=== PATIENT | male | born 1945 | race Caucasian/White ===

== ENCOUNTER 2021-10-20 22:19 | Inpatient (IN) | payer BC, MEDICARE ==
[2021-10-21 00:56] VITALS: BMI 37.6
[2021-10-21] MEDS ORDERED: Acetaminophen 325 MG TAB PO PRN (04:47)
[2021-10-21] MEDS ORDERED: Famotidine 20 MG TAB PO SCH (09:00)
[2021-10-21] MEDS ORDERED: Ondansetron ODT 4 MG TAB PO PRN (09:04)
[2021-10-21] MEDS ORDERED: Benzonatate 100 MG CAP PO PRN (09:04)
[2021-10-21] MEDS ORDERED: HumaLOG 300 UNITS/3 ML VIAL SC PRN (09:04)
[2021-10-21] MEDS ORDERED: Acetaminophen 500 MG TAB PO PRN (09:04)
[2021-10-21] MEDS ORDERED: Dextrose 50% Abboject 50 ML SYRINGE SLOW IVP PRN (09:04)
[2021-10-21] MEDS ORDERED: Ibuprofen 200 MG TAB PO PRN (09:04)
[2021-10-21] MEDS ORDERED: Loratadine 10 MG TAB PO SCH (09:04)
[2021-10-21] MEDS ORDERED: Dextrose 5% in Water 1,000 ML IV PRN (09:04)
[2021-10-21] MEDS ORDERED: hydrALAZINE 20 MG/ML VIAL SLOW IVP PRN (09:04)
[2021-10-21] MEDS ORDERED: Ondansetron PF 4 MG/2 ML Vial IVP PRN (09:04)
[2021-10-21] MEDS ORDERED: predniSONE 20 MG TAB PO SCH (09:15)
[2021-10-21] MEDS: Oseltamivir 75 MG CAP PO SCH ×2 (09:40→21:02)
[2021-10-21] MEDS: guaiFENesin ER 600 MG TAB PO SCH ×2 (09:41→21:02)
[2021-10-21] MEDS: Sodium Chloride 0.9% 1,000 ML IV SCH ×2 (09:42→18:42)
[2021-10-21] MEDS ORDERED: Mycophenolate 250 MG CAP PO SCH ×2 (11:45→21:00)
[2021-10-21] MEDS: HumaLOG 300 UNITS/3 ML VIAL SC PRN ×2 (11:45→17:05)
[2021-10-21] MEDS ORDERED: Non-Formulary Item 1 EACH (Icosapent Ethyl 1 GM Capsule) PO SCH (21:00)
[2021-10-21] MEDS ORDERED: Rosuvastatin 10 MG TAB PO SCH (21:00)
[2021-10-21] MEDS ORDERED: MYCOPHENOLATE MOFETIL 500 MG PO SCH (21:00)
[2021-10-21] MEDS: Mycophenolate 250 MG CAP PO SCH (21:01)
[2021-10-21] MEDS: Icosapent Ethyl 1 GM CAPSULE PO SCH (21:02)
[2021-10-21] MEDS: Glimepiride 4 MG TAB PO SCH (21:02)
[2021-10-22] MEDS: Sodium Chloride 0.9% 1,000 ML IV SCH (04:51)
[2021-10-22] MEDS ORDERED: oxyCODONE 5 MG TAB PO PRN (06:45)
[2021-10-22 06:55] LABS: #Lymphocytes 1.5 thou/uL (1.20-3.40); #Monocytes 0.8 thou/uL (0.11-0.59); #Neutrophils 3.1 thou/uL (1.40-6.50); %Basophils 0.2 % (0.0-1.0); %Eosinophils 0.3 % (0.0-10.0); %Lymphocytes 28.1 % (21.0-51.0); %Monocytes 14.1 % (0.0-10.0); %Neutrophils 57.3 % (42.0-75.0); Mean Corpuscular HGB CONC 32.2 g/dL (32.0-36.0); Mean Corpuscular Hemoglobin 30.7 pg (27.0-31.0); Mean Corpuscular Volume 95.2 fL (78.0-98.0); Mean Platelet Volume 6.8 fL (7.4-10.4); Platelet Count 160 thou/uL (130-400); RBC Distribution Width 13.1 % (11.5-14.5); Red Blood Cell (RBC) Count 4.25 mill/uL (4.70-6.10); White Blood Cell (WBC) Count 5.4 thou/uL (4.8-10.8)
[2021-10-22] MEDS: HumaLOG 300 UNITS/3 ML VIAL SC PRN (06:57)
[2021-10-22 07:15] LABS: ALT (SGPT) 15 U/L (8-55); AST (SGOT) 15 U/L (5-34); Albumin 3.6 g/dL (3.4-4.8); Alkaline Phosphatase 33 U/L (40-110); Anion Gap 11 mmol/L (10-20); BUN (Urea Nitrogen) 14 mg/dL (8.4-25.7); Bilirubin, Total 0.4 mg/dL (0.2-1.2); Calc. Creatinine Clearance 104 mL/min (70-130); Calcium 8.6 mg/dL (7.8-10.44); Carbon Dioxide 29 mmol/L (23-31); Chloride 100 mmol/L (98-107); Globulin 2.8 g/dL (2.4-3.5); Glucose 198 mg/dL (83-110); Magnesium 1.9 mg/dL (1.6-2.6); Potassium 3.5 mmol/L (3.5-5.1); Protein, Total 6.4 g/dL (5.8-8.1); Sodium 136 mmol/L (136-145)
[2021-10-22] MEDS ORDERED: predniSONE 20 MG TAB PO SCH (08:00)
[2021-10-22] MEDS: Mycophenolate 250 MG CAP PO SCH (08:23)
[2021-10-22] MEDS: Icosapent Ethyl 1 GM CAPSULE PO SCH (08:24)
[2021-10-22] MEDS: Oseltamivir 75 MG CAP PO SCH (08:24)
[2021-10-22] MEDS: guaiFENesin ER 600 MG TAB PO SCH (08:24)
[2021-10-22] MEDS: Glimepiride 4 MG TAB PO SCH (08:24)
[2021-10-22 08:27] LABS: Hemoglobin A1c 9.4 % (4.0-6.0)
[2021-10-22 08:29] VITALS: BP 142/84; TEMP 98.1
[2021-10-22] MEDS ORDERED: FENOFIBRATE 120 MG PO SCH (09:00)
[2021-10-22] MEDS ORDERED: Ezetimibe 10 MG TAB PO SCH (09:00)
[2021-10-22] MEDS ORDERED: Aspirin 81 mg Enteric Coated Tablet PO SCH (09:00)
[2021-10-22] MEDS ORDERED: Allopurinol 300 MG TAB PO SCH (09:00)
[2021-10-22] MEDS ORDERED: Loratadine 10 MG TAB PO SCH (09:00)
[2021-10-22] MEDS ORDERED: Multivit, Therapeutic 1 TAB PO SCH (09:00)
[2021-10-22] MEDS ORDERED: Alogliptin 25 MG TAB PO SCH (09:00)
[2021-10-22] MEDS ORDERED: Fenofibrate Nanocrystallized 145 MG TAB PO SCH (09:00)
== END 2021-10-22 11:17 | disposition home or self-care (01) | DRG 195 ==
LOC: T4-A 23:45 → OBSVTOIN 10-21 09:04
PROVIDERS: ADMIT Student in an Organized Health Care Education/Training Program; ATTEND Family Medicine
DX: J10.1 Influenza due to other identified influenza virus with other respiratory manifestations (principal); G70.00 Myasthenia gravis without (acute) exacerbation; I25.10 Atherosclerotic heart disease of native coronary artery without angina pectoris; E11.40 Type 2 diabetes mellitus with diabetic neuropathy, unspecified; M19.90 Unspecified osteoarthritis, unspecified site; E78.5 Hyperlipidemia, unspecified; M10.9 Gout, unspecified; E66.01 Morbid (severe) obesity due to excess calories; Z96.651 Presence of right artificial knee joint; I25.2 Old myocardial infarction; Z95.5 Presence of coronary angioplasty implant and graft; Z98.1 Arthrodesis status; Z98.49 Cataract extraction status, unspecified eye; Z88.0 Allergy status to penicillin; Z88.8 Allergy status to other drugs, medicaments and biological substances; Z79.899 Other long term (current) drug therapy; Z79.82 Long term (current) use of aspirin; Z79.84 Long term (current) use of oral hypoglycemic drugs; Z68.37 Body mass index [BMI] 37.0-37.9, adult; Z98.890 Other specified postprocedural states
CPT/HCPCS: 36415; 36416; 80053; 83036; 83735; 84443; 85025; 94640; G0378; J1815; J7050; J7512; J7517; J7620

== ENCOUNTER 2022-10-18 09:35 | Outpatient (CLI) | payer BC ==
[2022-10-18 11:02] LABS: #Basophils 0.1 10x3/uL (0.0-0.2); #Eosinphils 0.1 10x3/uL (0.0-0.5); #Monocytes 0.6 10x3/uL (0.0-1.1); #Neutrophils 4.3 10x3/uL (1.5-8.4); %Basophils 0.7 % (0.0-2.0); %Eosinophils 1.6 % (0.0-6.0); %Lymphocytes 27.8 % (18.0-47.0); %Monocytes 8.2 % (0.0-10.0); %Neutrophils 61.3 % (40.0-75.0); Mean Corpuscular Hemoglobin 28.6 pg (27.0-33.0); Mean Corpuscular Volume 89.6 fl (81.2-95.1); Mean Platelet Volume 9.6 fl (7.4-10.4); Platelet Count 303 10x3/uL (150-450); RBC Distribution Width 15.1 % (11.5-14.5); Red Blood Cell (RBC) Count 4.89 10x6/uL (4.32-5.72)
[2022-10-18 11:08] LABS: INR-International Normal Ratio 0.9; Prothrombin Time 10.3 sec (9.5-12.1)
[2022-10-18 11:14] LABS: Anion Gap 16 mmol/L (10-20); BUN (Urea Nitrogen) 27 mg/dL (8.4-25.7); Calc. Creatinine Clearance 0 mL/min (70-130); Calcium 9.4 mg/dL (7.8-10.44); Carbon Dioxide 23 mmol/L (23-31); Chloride 104 mmol/L (98-107); Estimated GFR 89; Glucose 131 mg/dL (83-110); Potassium 4.2 mmol/L (3.5-5.1); Sodium 139 mmol/L (136-145)
== END 2022-10-18 09:36 | disposition home or self-care (01) ==
LOC: LABBT 09:35
PROVIDERS: ATTEND Orthopaedic Surgery
DX: Z01.818 Encounter for other preprocedural examination (principal); M17.12 Unilateral primary osteoarthritis, left knee
CPT/HCPCS: 80048; 85025; 85610; 87081; 93005; 93010

== ENCOUNTER 2022-10-29 06:33 | Inpatient (IN) | payer BC, OTHER ==
[2022-10-24 15:43] VITALS: BMI 36.2
[2022-10-29] MEDS ORDERED: Tranexamic Acid 1,000 MG/10 ML VIAL ONE (07:00)
[2022-10-29] MEDS ORDERED: Sodium Chloride 0.9% 100 ML ONE ×2 (07:00→09:09)
[2022-10-29] MEDS ORDERED: Vancomycin (BATCH) 1.5 GRAM/300 ML BAG ONE (07:01)
[2022-10-29] MEDS ORDERED: EPINEPHrine 1 MG/ML AMP ONE (08:02)
[2022-10-29] MEDS ORDERED: fentaNYL 50 mcg/mL 1 mL Vial ONE (08:02)
[2022-10-29] MEDS ORDERED: Lidocaine 1% (PF) 30 ML VIAL ONE (08:02)
[2022-10-29] MEDS ORDERED: Bupivacaine PF 0.5% 30 ML VIAL ONE ×2 (08:02→10:14)
[2022-10-29] MEDS ORDERED: Midazolam HCl 2 mg/2 ml Vial ONE ×2 (08:24→09:39)
[2022-10-29] MEDS ORDERED: fentaNYL 50 mcg/mL 1 mL Vial SLOW IVP PRN (08:55)
[2022-10-29] MEDS ORDERED: Zolpidem Tartrate 5 MG TAB PO PRN ×2 (08:56→09:00)
[2022-10-29] MEDS ORDERED: Acetaminophen 325 MG TAB PO PRN (08:56)
[2022-10-29] MEDS ORDERED: HYDROcodone/Acetaminophen 10/325 mg Tablet PO PRN ×3 (08:56→09:00)
[2022-10-29] MEDS ORDERED: Ondansetron PF 4 MG/2 ML Vial IVP PRN ×2 (08:56→09:00)
[2022-10-29] MEDS ORDERED: Promethazine HCl 25 MG/ML VIAL IM PRN ×2 (08:56→09:00)
[2022-10-29] MEDS ORDERED: diphenhydrAMINE 25 MG CAP PO PRN (08:56)
[2022-10-29] MEDS ORDERED: Benzonatate 100 MG CAP PO PRN (08:57)
[2022-10-29] MEDS ORDERED: Multivitamin W/ Minerals 1 TAB PO SCH (09:00)
[2022-10-29] MEDS ORDERED: Aspirin 81 mg Enteric Coated Tablet PO SCH (09:00)
[2022-10-29] MEDS ORDERED: traMADol HCl 50 MG TAB PO PRN (09:00)
[2022-10-29] MEDS ORDERED: Ropivacaine 0.2% 550 ML 550 ML NERVE BLCK SCH (09:00)
[2022-10-29] MEDS ORDERED: CEFAZOLIN 2 GM VIAL ONE (09:09)
[2022-10-29] MEDS ORDERED: Dulaglutide [Trulicity] 1.5 MG/0.5 ML Pen.Injctr IM SCH (09:15)
[2022-10-29] MEDS ORDERED: Dexamethasone 20 MG/5 ML VIAL ONE (09:29)
[2022-10-29] MEDS ORDERED: Ondansetron PF 4 MG/2 ML Vial ONE ×2 (09:29→11:02)
[2022-10-29] MEDS ORDERED: fentaNYL PF 100 MCG/2 ML SYRINGE ONE (09:39)
[2022-10-29] MEDS: Allopurinol 300 MG TAB PO SCH (12:36)
[2022-10-29] MEDS: Aspirin 81 mg Enteric Coated Tablet PO SCH ×2 (12:36→21:45)
[2022-10-29] MEDS: Mycophenolate 250 MG CAP PO SCH ×2 (12:37→21:45)
[2022-10-29] MEDS: Senokot S 8.6-50 MG TAB PO SCH ×2 (12:37→21:46)
[2022-10-29] MEDS: CEFAZOLIN 2 GM in Sodium Chloride 0.9% 100 ML IVPB SCH ×2 (12:37→16:11)
[2022-10-29] MEDS: Ezetimibe 10 MG TAB PO SCH (12:37)
[2022-10-29] MEDS: Ferrous Gluconate 324 MG TAB PO SCH ×2 (12:37→21:45)
[2022-10-29] MEDS: Sodium Chloride 0.9% 1,000 ML IV SCH ×2 (12:38→20:06)
[2022-10-29] MEDS: Ketorolac Tromethamine 30 MG/ML VIAL IVP SCH ×3 (12:54→23:49)
[2022-10-29] MEDS: traMADol HCl 50 MG TAB PO PRN (16:10)
[2022-10-29] MEDS: Icosapent Ethyl 1 GM CAPSULE PO SCH (21:45)
[2022-10-29] MEDS: Rosuvastatin 10 MG TAB PO SCH (21:45)
[2022-10-30] MEDS ORDERED: CEFAZOLIN 2 GM in Sodium Chloride 0.9% 100 ML IVPB SCH (01:00)
[2022-10-30] MEDS: Sodium Chloride 0.9% 1,000 ML IV SCH ×2 (05:31→11:02)
[2022-10-30] MEDS: Ketorolac Tromethamine 30 MG/ML VIAL IVP SCH ×4 (05:32→22:58)
[2022-10-30 06:21] LABS: Mean Corpuscular HGB CONC 32.5 g/dL (32.0-36.0); Mean Corpuscular Hemoglobin 29.2 pg (27.0-31.0); Mean Platelet Volume 7.5 fL (7.4-10.4); Platelet Count 210 10x3/uL (130-400); RBC Distribution Width 14.6 % (11.5-14.5); Red Blood Cell (RBC) Count 4.44 mill/uL (4.70-6.10); White Blood Cell (WBC) Count 9.7 10x3/uL (4.8-10.8)
[2022-10-30] MEDS: Glimepiride 2 MG TAB PO SCH (08:20)
[2022-10-30] MEDS: Empagliflozin 10 MG TAB PO SCH (08:21)
[2022-10-30] MEDS: Loratadine 10 MG TAB PO SCH (08:21)
[2022-10-30] MEDS: Allopurinol 300 MG TAB PO SCH (08:21)
[2022-10-30] MEDS: Aspirin 81 mg Enteric Coated Tablet PO SCH ×2 (08:21→21:09)
[2022-10-30] MEDS: Fenofibrate Nanocrystallized 145 MG TAB PO SCH (08:21)
[2022-10-30] MEDS: Mycophenolate 250 MG CAP PO SCH ×2 (08:22→21:08)
[2022-10-30] MEDS: Ferrous Gluconate 324 MG TAB PO SCH ×2 (08:23→21:09)
[2022-10-30] MEDS: Icosapent Ethyl 1 GM CAPSULE PO SCH ×2 (08:23→21:08)
[2022-10-30] MEDS: Multivitamin W/ Minerals 1 TAB PO SCH (08:23)
[2022-10-30] MEDS: Ezetimibe 10 MG TAB PO SCH (08:23)
[2022-10-30] MEDS: Senokot S 8.6-50 MG TAB PO SCH ×2 (08:24→21:09)
[2022-10-30] MEDS: traMADol HCl 50 MG TAB PO PRN (11:12)
[2022-10-30] MEDS: Rosuvastatin 10 MG TAB PO SCH (21:09)
[2022-10-30] MEDS: HYDROcodone/Acetaminophen 10/325 mg Tablet PO PRN (21:26)
[2022-10-31] MEDS: Sodium Chloride 0.9% 1,000 ML IV SCH ×2 (03:26→11:27)
[2022-10-31] MEDS: Ketorolac Tromethamine 30 MG/ML VIAL IVP SCH (05:50)
[2022-10-31] MEDS: Aspirin 81 mg Enteric Coated Tablet PO SCH (07:47)
[2022-10-31] MEDS: Senokot S 8.6-50 MG TAB PO SCH (07:47)
[2022-10-31] MEDS: Ezetimibe 10 MG TAB PO SCH (07:47)
[2022-10-31] MEDS: Loratadine 10 MG TAB PO SCH (07:48)
[2022-10-31] MEDS: Allopurinol 300 MG TAB PO SCH (07:48)
[2022-10-31] MEDS: Mycophenolate 250 MG CAP PO SCH (07:48)
[2022-10-31] MEDS: Icosapent Ethyl 1 GM CAPSULE PO SCH (07:49)
[2022-10-31] MEDS: Ferrous Gluconate 324 MG TAB PO SCH (07:49)
[2022-10-31] MEDS: HYDROcodone/Acetaminophen 10/325 mg Tablet PO PRN ×2 (07:50→12:51)
[2022-10-31] MEDS: Multivitamin W/ Minerals 1 TAB PO SCH (07:51)
[2022-10-31] MEDS: Fenofibrate Nanocrystallized 145 MG TAB PO SCH (07:52)
[2022-10-31] MEDS: Glimepiride 2 MG TAB PO SCH (07:52)
[2022-10-31] MEDS: Empagliflozin 10 MG TAB PO SCH (10:07)
[2022-10-31 12:16] VITALS: BP 106/61; TEMP 98.3
== END 2022-10-31 14:05 | disposition home or self-care (01) | DRG 470 ==
LOC: SDC 06:33 → SURG B 12:40 → SDC 13:17 → SURG B 13:17 → OBSVTOIN 10-30 06:49
PROVIDERS: ADMIT Orthopaedic Surgery; ATTEND Orthopaedic Surgery
PROC: 0SRD0J9 Replacement of Left Knee Joint with Synthetic Substitute, Cemented, Open Approach (ICD-10-PCS; principal; 2022-10-29)
DX: M17.12 Unilateral primary osteoarthritis, left knee (principal); G70.00 Myasthenia gravis without (acute) exacerbation; Z96.641 Presence of right artificial hip joint; E78.5 Hyperlipidemia, unspecified; M10.9 Gout, unspecified; G47.30 Sleep apnea, unspecified; K21.9 Gastro-esophageal reflux disease without esophagitis; Z96.1 Presence of intraocular lens; E11.9 Type 2 diabetes mellitus without complications; E66.01 Morbid (severe) obesity due to excess calories; Z87.01 Personal history of pneumonia (recurrent); Z90.89 Acquired absence of other organs; Z88.8 Allergy status to other drugs, medicaments and biological substances; Z88.0 Allergy status to penicillin; Z88.1 Allergy status to other antibiotic agents; I25.2 Old myocardial infarction; Z95.5 Presence of coronary angioplasty implant and graft; Z98.41 Cataract extraction status, right eye; Z98.42 Cataract extraction status, left eye; Z82.49 Family history of ischemic heart disease and other diseases of the circulatory system; Z82.3 Family history of stroke; Z83.3 Family history of diabetes mellitus; Z79.899 Other long term (current) drug therapy; Z79.84 Long term (current) use of oral hypoglycemic drugs
CPT/HCPCS: 36415; 36416; 85027; 96374; 96375; 96376; A4306; C1713; C1776; G0378; J0171; J1100; J1885; J2001; J2250; J2405; J2795; J3010; J3370; J3490; J7050; J7517; S0020